=== PATIENT | female | born 1965 | race African-American/Black ===

== ENCOUNTER 2017-07-26 21:54 | Emergency (ER) | payer SELFPAY ==
[~2017-07-26] VITALS: Ht 172.7 cm; Wt 95.0 kg
[~2017-07-26 21:54] MED LIST: IBUP600T26 PO; PROM6.257 PO; Z.0.NO CURRENT MEDS; ZOFR4TAB3 SL
[2017-07-26 21:57] VITALS: BP 152/66; PULSE 78; RESP 16; TEMP 98.6; O2SAT 98
== END 2017-07-27 00:08 | disposition left against medical advice (07) ==
LOC: NED 21:54
DX: R42 Dizziness and giddiness (principal); R51 Headache; Z53.21 Procedure and treatment not carried out due to patient leaving prior to being seen by health care provider
CPT/HCPCS: 99281